=== PATIENT | female | born 1955 | race African-American/Black ===

== ENCOUNTER → 2023-08-21 | Day surgery (SDC) | payer MEDICARE, OTHER | END | disposition home or self-care (01) | LOC: FMAMMOTONE 08:32 | PROVIDERS: ATTEND Family Medicine | PROC: 0H9T3ZX Drainage of Right Breast, Percutaneous Approach, Diagnostic (ICD-10-PCS; principal; 2023-08-21) | DX: R92.1 Mammographic calcification found on diagnostic imaging of breast (principal) | CPT/HCPCS: 19081; 76098-TC-FY; 87899; 88305-TC; 88341-TC; 88342-TC; A4648 ==

== ENCOUNTER 2023-09-04 19:05 | Emergency (ER) | payer MEDICARE, OTHER ==
[2023-09-04 19:14] VITALS: BP 149/66; PULSE 82; RESP 18; TEMP 98.5; BMI 25.5
== END 2023-09-04 21:30 | disposition home or self-care (01) ==
LOC: JER 19:05
DX: M54.50 Low back pain, unspecified (principal); M25.552 Pain in left hip; M79.652 Pain in left thigh
CPT/HCPCS: 73502-TC-LT-FY; 99283-25

== ENCOUNTER → 2023-10-21 | Day surgery (SDC) | payer MEDICARE, OTHER | END | disposition home or self-care (01) | LOC: JMAMMO-SUR 13:45 | PROVIDERS: ATTEND Surgery Surgical Oncology | PROC: BH40ZZZ Ultrasonography of Right Breast (ICD-10-PCS; principal; 2023-10-21) | DX: N63.10 Unspecified lump in the right breast, unspecified quadrant (principal) | CPT/HCPCS: 19281; A4648; 19282; 77065-TC ==

== ENCOUNTER 2023-10-22 04:10 | Day surgery (SDC) | payer MEDICARE, OTHER ==
[2023-10-21 11:20] VITALS: BMI 25.4
[2023-10-22] MEDS ORDERED: PROPOFOL 20 ML ONE (08:36)
[2023-10-22] MEDS ORDERED: MIDAZOLAM HCL 2 MG/2 ML SINGLE DOSE VIAL ONE (08:36)
[2023-10-22] MEDS ORDERED: oxyCODONE HCL 5 MG TABLET PO PRN ×2 (09:00)
[2023-10-22] MEDS ORDERED: BUPIVACAINE HCL/PF 0.5% (5MG/ML) 10 ML VIAL ONE ×2 (09:12→09:17)
[2023-10-22] MEDS ORDERED: ISOSULFAN BLUE 50 MG/5 ML VIAL SQ ONE (09:17)
[2023-10-22] MEDS: ceFAZolin SODIUM 1 GM VIAL IVPB ONE (09:28)
[2023-10-22] MEDS ORDERED: ceFAZolin SODIUM 1 GM VIAL ONE ×2 (09:36)
[2023-10-22] MEDS ORDERED: DEXAMETHASONE SOD PHOSPHATE 4 MG/1 ML VIAL ONE (09:36)
[2023-10-22] MEDS ORDERED: ONDANSETRON 4 MG/2 ML VIAL ONE ×2 (09:36→12:23)
[2023-10-22] MEDS: BUPIVACAINE HCL/PF 0.5% (5 MG/ML) 30 ML VIAL IJ ONE ×2 (10:17)
[2023-10-22] MEDS: LACTATED RINGERS SOLUTION 1,000 ML IV SCH (10:30)
[2023-10-22] MEDS: ACETAMINOPHEN 1000 MG/100 ML BAG IVPB ONE (10:39)
[2023-10-22 12:05] VITALS: PULSE 66
[2023-10-22] MEDS: ONDANSETRON 4 MG/2 ML VIAL IVPUSH PRN (12:30)
[2023-10-22 13:27] VITALS: BP 142/93; RESP 20; TEMP 96.9
== END 2023-10-22 13:42 | disposition home or self-care (01) ==
LOC: JASU-SURG 04:10
PROVIDERS: ATTEND Surgery Surgical Oncology
PROC: 0HBT0ZZ Excision of Right Breast, Open Approach (ICD-10-PCS; principal; 2023-10-22 09:00)
DX: D05.01 Lobular carcinoma in situ of right breast (principal); D24.1 Benign neoplasm of right breast; N60.11 Diffuse cystic mastopathy of right breast; N60.31 Fibrosclerosis of right breast; N64.89 Other specified disorders of breast; R92.1 Mammographic calcification found on diagnostic imaging of breast
CPT/HCPCS: 76098-TC-FY; 78195-TC; 88307-TC; 88341-TC; 88342-TC; 94760; A9541; J0131